=== PATIENT | male | born 1990 | race Caucasian/White ===

== ENCOUNTER 2018-02-24 11:02 | Inpatient (IN) ==
[2018-02-24] MEDS ORDERED: Ibuprofen 600 MG TABLET PO ONE (11:39)
--- NOTE | 2018-02-24 11:49 | Emergency Department Note ---
Disposition Clinical Impression: Acute occlusion of artery of upper extremity Disposition: Admitted As Inpatient Condition: Good Time of Disposition: 16:21 Extremity Problem HPI - General Chief complaint: ED Extremity Problem,Nontraumatic Stated complaint: Right hand pain/feet swelling Time Seen by Provider: 02/24/18 11:21 Source: patient Limitations: no limitations Nursing Notes Reviewed: Yes Vital Signs Reviewed: Yes - History of Present Illness HPI Narrative: 27-year-old male current smoker presents an emergency department with right forearm pain and swelling to bilateral legs. 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 He states he does roughly 500 a day. Over the past week or so he has slowly developed some pain in his right forearm, mostly over the large muscle next to the elbow. On Saturday he was unable do heavy lifting at work due to the pain. He has noticed that his right extremity is slightly colder than the other. He reports some numbness and tingling. Some pain with passive motion. No injury or trauma reported. He is also noticed some swelling to his legs especially since he stands a lot through work. The symptoms are all exacerbated after work. He denies any other symptoms such as fever, recent illness, chest pain or shortness of breath. He has taken ibuprofen with some relief. Pt Subjective Complaint: extremity pain Pain Scale: 8 - Related Data Previous Rx's Medication Instructions Recorded PredniSONE [Deltasone] 20 mg PO DAILY #12 tablet 02/21/18 Tizanidine HCl 4 mg PO TID #15 tablet 02/21/18 Allergies Allergy/AdvReac Type Severity Reaction Status Date / Time No Known Allergies Allergy Verified 02/24/18 16:37 All systems ED: reviewed and negative except as stated. Review of Systems: As Per HPI Past Medical History - Past Medical History Attestation: Yes The following information was validated with the patient. Source: patient Medical history: Reports: non-contributory, other Surgical history: Reports: no surgical history Psychiatric history: Reports: anxiety - Social History Smoking Status: Current every day smoker Smokeless Tobacco Status: No Alcohol use: Reports: none Drug use: Reports: none Physical Exam - General Limitations: no limitations General appearance: alert, in no apparent distress - Chest Chest inspection: Present: normal inspection, symmetric chest wall rise - Respiratory Respiratory exam: Present: normal lung sounds bilaterally. Absent: respiratory distress, wheezes - Cardiovascular Cardiovascular exam: Present: regular rate, normal rhythm, normal heart sounds. Absent: systolic murmur, diastolic murmur - Expanded Cardiovascular Exam Peripheral pulses: 1+: radial (R), 2+: radial (L) - Abdominal Exam Abdominal exam: Present: soft, Non-Tender. Absent: tenderness, distention, guarding, rebound, rigidity - Extremities Exam Extremities exam: Present: other (delayed cap refill in right hand). Absent: pedal edema, calf tenderness - Expanded Upper Extremity Exam Shoulder exam: Present: normal inspection, full ROM Arm exam: Present: normal inspection, full ROM Elbow exam: Present: normal inspection, full ROM Forearm/Wrist exam: Present: full ROM (Limited due to pain), tenderness (To the muscle belly of brachioradialis), other (compartment is soft). Absent: swelling , abrasion, erythema, tenderness over anatomical snuff box Hand exam: Present: normal inspection, full ROM Neuromotor exam: Normal: wrist extension, thumb opposition, thumb IP flexion, thumb adduction, fingers 2-5 abduction Neurosensory exam: Normal: radial nerve, ulnar nerve, median nerve Vascular exam: Normal: capillary refill, radial pulse - Skin Skin exam: Present: warm, dry, intact, normal color. Absent: rash, cyanosis, diaphoresis - Expanded Skin Exam Type of lesion: Absent: rash, abscess Description: Present: purpuric (over the right dorsal hand) Course Course Narrative: Patients develop this pain over the past week or so there is some concern for compartment syndrome. The compartment is tight. He reports tightness with movements. Tenderness is mostly over the muscle belly of the brachioradialis. No tenderness to the epicondyles of the elbow. He has good range of motion but it is limited to some pain on passive motion. Neurovascularly intact. He reports some paresthesias. His capillary refill on the right is slightly delayed. It is slightly cooler to the touch. His lower extremities to not display any significant edema. Does appears slightly swollen but it is nonpitting. Will obtain a urinalysis to evaluate for proteinuria. Will also check a CPK and basic chemistry. - Reevaluation(s) Reevaluation #1: Labs appear okay. Arterial Doppler ultrasound performed with critical results of occlusion to the right antecubital, radial and ulnar artery. Time: 15:13 - Consultations Consultation #1: Consulted orthopedic surgery Dr. Mcmahan who is currently in the OR will have one of his colleagues come to evaluate the patient here in the emergency department at bedside. Discuss the concern of compartment syndrome due to the repetitive movements. Time: 12:24 Consultation #2: Rosina with [facility] is at bedside evaluating the patient. Recommended arterial doppler study and agrees that less suspicious for compartment syndrome but possibility. Await ultrasound doppler before further recommendations. Time: 12:59 Consultation #3: Discuss the findings with vascular surgery Dr. Mcdermott. States this is a very unusual presentation. Requesting stat wrist-brachial index. Agree with heparin drip. Time: 15:21 Additional Consultation(s): Dr. Mcdermott is in the emergency department at bedside evaluating the patient. Will take to the operating room to remove the arterial occlusion. He appears anemic hemoglobin 9. He denies any G.I. bleed symptoms bloody stool, black tarry stool, hemoptysis or hematemesis. His INR is 1.3. Heparin drip has been ordered. Wrist-Brachial Index has been ordered as requested. Vital Signs Temperature 98 F 02/24/18 11:16 Pulse Rate 85 02/24/18 11:16 Respiratory Rate 16 02/24/18 11:16 Blood Pressure 118/60 02/24/18 11:16 O2 Sat by Pulse Oximetry 95 02/24/18 11:16 Temperature 97.7 F 02/24/18 20:10 Pulse Rate 75 02/24/18 20:10 Respiratory Rate 16 02/24/18 20:10 Blood Pressure 127/55 02/24/18 20:10 O2 Sat by Pulse Oximetry 94 02/24/18 20:10 Oxygen Delivery Oxygen Delivery Room Air Extremity Problem, Nontraumati - MDM Narrative Medical decision making narrative: Patient was discussed with my attending physician who agrees with ED management and final disposition. They independently evaluated the patient. Please refer to their attestation to this encounter for additional information. This note was generated by [employer] voice recognition software and as a result grammatical or spelling errors may occur using this program. - Medical Records Medical records reviewed: Yes I reviewed the patient's medical records. - Lab Data Lab results reviewed: Yes I reviewed the patient's lab results. Result diagrams: 02/24/18 20:25 02/24/18 12:11 Lab Results 05/21/18 05/21/18 05/21/18 Range/Units 12:11 12:11 12:11 WBC 13.3 H (4.3-11.1) K/mcL RBC 3.81 L (4.19-5.50) M/mcL Hgb 9.4 L (12.9-16.9) g/dL Hct 30.6 L (37.5-50.1) % MCV 80.3 L (83.0-100.0) fL MCH 24.7 L (28.0-33.3) pg MCHC 30.7 L (31.6-35.5) g/dL RDW 15.4 H (11.5-14.5) % Plt Count 317 (140-400) K/mcL MPV 10.1 (9.4-12.4) fL PT 13.6 H (9.4-12.1) Seconds INR 1.3 APTT 28.4 (26.0-36.0) Seconds Sodium 139 (136-145) mEq/L Potassium 3.6 (3.5-5.1) mEq/L Chloride 107 (98-107) mEq/L Carbon Dioxide 28 (23-29) mEq/L BUN 17 (6-20) mg/dL Creatinine 0.77 (0.70-1.30) mg/dL Est GFR ( Amer) > 60 (> 60) Est GFR (Non-Af Amer) > 60 (> 60) BUN/Creatinine Ratio 22 (6-26) Glucose 123 H (70-105) mg/dL Calculated Osmolality 291 (280-300) Calcium 8.4 L (8.6-10.3) mg/dL Creatine Kinase 162 (30-223) Units/L Urine Color (Yellow) Urine Clarity (Clear) Urine pH (5.0-8.0) pH Units Ur Specific [place] (1.010-1.025) Urine Protein (Neg-Trace) mg/dL Urine Glucose (UA) (Normal) mg/dL Urine Ketones (Negative) mg/dL Urine Blood (Negative) Urine Nitrite (Negative) Urine Bilirubin (Negative) Urine Urobilinogen (Normal) mg/dL Ur Leukocyte Esterase (Negative) Urine Microscopic RBC (0-3) per hpf Urine Microscopic WBC (0-3) per hpf Ur Squamous Epith Cells (None-Few) per lpf Urine Bacteria (None-Few) per hpf Hyaline Casts (None-Few) per lpf Ur Culture Indicated? (NO) 02/24/18 Range/Units 12:54 WBC (4.3-11.1) K/mcL RBC (4.19-5.50) M/mcL Hgb (12.9-16.9) g/dL Hct (37.5-50.1) % MCV (83.0-100.0) fL MCH (28.0-33.3) pg MCHC (31.6-35.5) g/dL RDW (11.5-14.5) % Plt Count (140-400) K/mcL MPV (9.4-12.4) fL PT (9.4-12.1) Seconds INR APTT (26.0-36.0) Seconds Sodium (136-145) mEq/L Potassium (3.5-5.1) mEq/L Chloride (98-107) mEq/L Carbon Dioxide (23-29) mEq/L BUN (6-20) mg/dL Creatinine (0.70-1.30) mg/dL Est GFR ( Amer) (> 60) Est GFR (Non-Af Amer) (> 60) BUN/Creatinine Ratio (6-26) Glucose (70-105) mg/dL Calculated Osmolality (280-300) Calcium (8.6-10.3) mg/dL Creatine Kinase (30-223) Units/L Urine Color Yellow (Yellow) Urine Clarity Clear (Clear) Urine pH 6.0 (5.0-8.0) pH Units Ur Specific [place] 1.018 (1.010-1.025) Urine Protein Trace (Neg-Trace) mg/dL Urine Glucose (UA) Normal (Normal) mg/dL Urine Ketones Negative (Negative) mg/dL Urine Blood Trace H (Negative) Urine Nitrite Negative (Negative) Urine Bilirubin Negative (Negative) Urine Urobilinogen Normal (Normal) mg/dL Ur Leukocyte Esterase Negative (Negative) Urine Microscopic RBC 0-3 (0-3) per hpf Urine Microscopic WBC 3-5 H (0-3) per hpf Ur Squamous Epith Cells Moderate H (None-Few) per lpf Urine Bacteria None Seen (None-Few) per hpf Hyaline Casts None Seen (None-Few) per lpf Ur Culture Indicated? NO (NO) - Radiology Data Radiology results reviewed: Yes I reviewed the patient's radiology results. Forearm X-Ray 02/24/18 11:39 IMPRESSION: No acute osseous abnormality of the right forearm. D/ / Chance Scruggs MD / Chance Scruggs MD Interpreting Provider: Chance Scruggs MD Madi Quiroz Male : 1990 [facility]# [id number] 02/24/18 15:06 - Vascular Preliminary by Saima Jaramillo [facility] Num: [id number] : 1990 Patient Age: 27 Unilateral upper extremity arterial duplex exam completed on right UE. Acute heterogenous plaque resulting in occlusion starting at the antecubital level down to the radial and ulnar arteries on right UE. Initialized on 02/24/18 15:06 - END OF NOTE Attestation Statement - Attestation Attestation: I, Hossein Garces, examined this patient and my medical decision-making was reviewed with the STREET CAR INSPECTOR/PA/Advanced Practice Nurse/Resident Physician. I agree with the documented findings, disposition and treatment plan as described except to the extent set forth below. 27-year-old male presents emergency Department with concerns of right forearm pain. Patient states he has a job which requires repetitive lifting. His pain is a worsening over the past week. On initial evaluation the patient has decreased pulses in the right wrist compared to the left wrist. Cap refill is still within 3 seconds however. Patient has severe tenderness to palpation of the right brachial radialis muscle with spasm evident on exam. The rest of the forearm is soft and nontender. We have concerns about possible compartment syndrome to the dorsal compartment of the arm. We consult the orthopedic physician after the initial evaluation. Orthopedic PA evaluated the patient in the emergency department and recommended arterial and venous Doppler of the forearm. He arterial ultrasound returned as decreased arterial flow in the right upper extremity due to heterogenous plaque in multiple arteries. We started heparin for likely vasculitis. We spoke with Dr. Mcdermott who will take the patient to the operating room for further care and evaluation.
[2018-02-24 12:43] LABS: BUN/Creatinine Ratio 22 (6-26); Blood Urea Nitrogen 17 mg/dL (6-20); Calcium 8.4 mg/dL (8.6-10.3); Carbon Dioxide 28 mEq/L (23-29); Chloride 107 mEq/L (98-107); Creatine Kinase 162 Units/L (30-223); Glucose 123 mg/dL (70-105); Osmolality,Calculated 291 (280-300); Potassium 3.6 mEq/L (3.5-5.1); Sodium 139 mEq/L (136-145); eGFR For African Americans > 60 (> 60); eGFR For Non-African Americans > 60 (> 60)
[2018-02-24 13:12] LABS: Bilirubin,Urine Negative (Negative); Blood,Urine Trace (Negative); Clarity,Urine Clear (Clear); Color,Urine Yellow (Yellow); Glucose,Urine (UA) Normal (Normal); Ketones,Urine Negative (Negative); Leukocyte Esterase,Urine Negative (Negative); Nitrite,Urine Negative (Negative); Protein,Urine Trace mg/dL (Neg-Trace); Specific Gravity,Urine 1.018 (1.010-1.025); Urobilinogen,Urine Normal (Normal)
[2018-02-24 13:15] LABS: Bacteria,Urine None Seen per hpf (None-Few); Hyaline Casts,Urine None Seen per lpf (None-Few); RBC,Urine 0-3 per hpf (0-3); Squamous Epithelial Cell,Urine Moderate per lpf (None-Few)
--- NOTE | 2018-02-24 13:29 | Orthopedic Consult Note ---
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 Quiroz is a 27 year old male presenting to [facility] today for ongoing right hand and forearm pain. He states he went to urgent care approximately 3 days ago and was treated for the same problem however he states they told was tendinitis. 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 He says his pain has been ongoing for the past week with no provoked injury. He states he woke up with the right forearm pain but does not recall any particular injury such as crush or trauma while at work or at home. He denies any history of passing out, binge drinking, or drug use that would incite him laying on the arm for any extended period of time. He does admit to a history of IV drug use however he states that last time he used was 2 years ago. He states he has been clean since then. He does admit to smoking marijuana approximately once monthly. He states he does not believe he is on this within the past one week. He admits to being a daily tobacco smoker. He states that the pain has started out as intermittent however now is constant and progressively worsening. He admits to tingling that has continued to worsen over the past one week. He states this is most intensely been going on for the past approximately 2-3 days. He states his altered sensation he states he still can feel pressure. He also states that approximately 1 week ago when he woke up within the pain that he noticed a "rash" to the dorsal hand. He states that this is not necessarily spread but it is also not resolved. For this pain he states he has been taking ibuprofen 800 mg 3-4 times daily for the past several days. On examination patient is lying in a deep bed comfortably with right hand propped in the air with elbow flexed. When asked to move the elbow he states that it is increasingly painful and he states that he now cannot extend the elbow fully. Skin changes are noted to the dorsal and palmar hand extending down onto the volar wrist. The skin changes are noted to be violaceous, purpuritic, and nonblanching. There is scattered patches of these discolorations approximately the largest 2 cm in diameter with irregular borders. Even with passive range of motion the elbow does not extend past approximately 120 degrees. Flexion is full. Wrist extension is full however wrist flexion and slight significant pain with patient. Tumbler Drier Operator is intact however strength is weakened significantly in the right hand. Finger range of motion appears intact to all digits of the right hand. Capillary refill is noted to be delayed approximately 4 seconds. Radial pulses nearly nonpalpable. Robert's test does not reveal normal flow to the radial artery of the right hand. Patient expresses significant pain and wincing to palpation of the right brachioradialis region. He denies any pain with palpation of the olecranon and surrounding tissues. Assessment: Right forearm pain Vascular compromise of the right upper extremity History of IV drug use Plan: Discussed with resident as well as Rosina Desouza PA-C and Dr. Felton that patient has ongoing pain for the past week there is unexplained at this time. There is definitely concern for compartment syndrome however with the arterial flow disruption concern for clot even arterial is a significant concern. Recommended Doppler of the right upper extremity to evaluate for clot. Did discuss evaluating for compartment syndrome with pressures once clot is ruled out. Dr. Felton recommended MRI if concern for compartment syndrome is ongoing. Thank you for this consultation. If dopplers negative we will continue with evaluation for compartment syndrome to orthopedics. If Doppler is positive with recommend vascular recommendations. Past Med Surg Social Fam HX - Past Medical History Medical history: non-contributory, other Psychiatric history: anxiety - Past Surgical History Surgical History: no surgical history - Social History Smoking Status: Current every day smoker Smokeless Tobacco Status: No Alcohol use: none Drug use: none - Family History Mother Hx Family Endocrine Disorder: Yes Father Hx Family Endocrine Disorder: Yes Medications and Allergies PredniSONE [Deltasone] 20 mg PO DAILY #12 tablet 02/21/18 [Rx] Tizanidine HCl 4 mg PO TID #15 tablet 02/21/18 [Rx] Acetaminophen [Tylenol] 1,000 mg PO Q6HR PRN #90 tablet 02/25/18 [Rx] Aspirin Enteric Coated [Aspirin EC] 325 mg PO DAILY #90 tablet. 02/25/18 [Rx] Ibuprofen [Ibu] 600 mg PO TID PRN #90 tablet 02/25/18 [Rx] 3 Allergy/AdvReac Type Severity Reaction Status Date / Time No Known Allergies Allergy Verified 02/24/18 16:37 All Systems Reviewed: The remainder of the systems were reviewed and are negative Physical Exam - Constitutional Vitals: Temp Pulse Resp BP Pulse Ox 98 F 85 16 118/60 95 02/24/18 11:37 02/24/18 11:37 02/24/18 11:37 02/24/18 11:37 02/24/18 11:37 Results - Labs Result Diagrams: 02/25/18 03:55 02/25/18 03:55 Labs: Abnormal lab results Glucose 123 mg/dL (70-105) H 02/24/18 12:11 Calcium 8.4 mg/dL (8.6-10.3) L 02/24/18 12:11 Urine Blood Trace (Negative) H 02/24/18 12:54 Urine Microscopic WBC 3-5 per hpf (0-3) H 02/24/18 12:54 Ur Squamous Epith Cells Moderate per lpf (None-Few) H 02/24/18 12:54 All other labs normal. Consult Discharge Plan - Plan Instructions: Peripheral Vascular Disorders (DC), Surgical Site Infections (GEN ) Additional Instructions: May remove bandage and shower on 02/26/2018. Wash wound gently and pat to dry. No tub baths or swimming until 03/16/2018. Call Dr. Mdcermott at [phone] with questions or concerns. Referrals: Diana Otero DO [Resident] - 04/11/18 3:30 pm Myrna De Jesus DO [Resident] - 03/06/18 10:00 am (Please show up 30 minutes early to fill out paper work, if you happen to get one in the mail, please fill it out and take with you. Take INS cards, Picture ID, a list of all medication. If you need to cancel please call [phone] 24 hours before your appointment. This office is located across from [facility] next to [facility]) Luisito Mcdermott MD [Partnered Physician] - 03/18/18 4:00 pm NONE,PCP [Primary Care Provider] - Prescriptions: Acetaminophen [Tylenol] 1,000 mg PO Q6HR PRN #90 tablet PRN Reason: POSTOPERATIVE PAIN Aspirin Enteric Coated [Aspirin EC] 325 mg PO DAILY #90 tablet. Ibuprofen [Ibu] 600 mg PO TID PRN #90 tablet PRN Reason: POSTOPERATIVE PAIN
[2018-02-24] MEDS ORDERED: *HR* Heparin 5,000 UNIT/ML VIAL IVP PRN ×4 (15:11→19:56)
[2018-02-24] MEDS ORDERED: *HR* Heparin 5,000 UNIT/ML VIAL IVP ONE (15:11)
[2018-02-24] MEDS ORDERED: Heparin 25,000 UNIT/500 ML D5W 25,000 UNIT/500 ML BAG IVC SCH ×2 (15:15→19:56)
[2018-02-24 15:24] LABS: Hematocrit 30.6 % (37.5-50.1); Hemoglobin 9.4 g/dL (12.9-16.9); Mean Corpuscular HGB Conc 30.7 g/dL (31.6-35.5); Mean Corpuscular Hemoglobin 24.7 pg (28.0-33.3); Mean Corpuscular Volume 80.3 fL (83.0-100.0); Mean Platelet Volume 10.1 fL (9.4-12.4); Platelet Count 317 K/mcL (140-400); Red Blood Count 3.81 M/mcL (4.19-5.50); Red Cell Distribution Width 15.4 % (11.5-14.5)
[2018-02-24 15:29] LABS: INR 1.3; Prothrombin Time 13.6 Seconds (9.4-12.1)
[2018-02-24 15:32] LABS: Activated Partial Thrombo Time 28.4 Seconds (26.0-36.0)
[2018-02-24] MEDS ORDERED: *HR* FentaNYL (PF) 100 MCG/2 ML VIAL IVP ONE (15:36)
--- NOTE | 2018-02-24 16:30 | Anesthesia Evaluation PreOp ---
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) Other Medical History: Denies Any Significant HX Anesthesia History: No Prior Anesthetic Complications, Past Anesthesia (Ankle sx ) Alcohol Use: none Drug use: none Medications and Allergies PredniSONE [Deltasone] 20 mg PO DAILY #12 tablet 02/21/18 [Rx] Tizanidine HCl 4 mg PO TID #15 tablet 02/21/18 [Rx] 3 Allergy/AdvReac Type Severity Reaction Status Date / Time No Known Allergies Allergy Verified 02/24/18 16:37 - Meds/Allergy Pre-op Review Medications Reviewed: Yes Allergies Reviewed: Yes Beta Blockers on Current Med List: No Anesthesia Results - Labs 02/24/18 12:11 02/24/18 12:11 - Imaging EKG: report reviewed (SINUS RHYTHM WITH SINUS ARRHYTHMIA Electronically Signed On 04-18-2017 6:52:44 EDT by Lamont Langford MD) Anesthesia Exam O2 Sat Height 1.83 m Height 1.83 m Weight 73.845 kg Weight 73.845 kg O2 Sat by Pulse Oximetry 95 O2 Sat by Pulse Oximetry 95 Vital Signs Temp Pulse Resp BP Pulse Ox 98 F 85 16 118/60 95 02/24/18 11:16 02/24/18 11:16 02/24/18 11:16 02/24/18 11:16 02/24/18 11:16 Weight: 72" NPO (# of Hours): 162lbs - HEENT Pupil (Motor): Pupils equal, EOMI Mallampati: II Teeth: Normal Oral Opening: Greater than 3 - ELECTRICAL CONTACTS ADJUSTER LOC: Oriented ELECTRICAL CONTACTS ADJUSTER Motor: Normal RUE, Normal LUE, Normal RLE, Normal LLE, Normal Face [employer]LECT[employer]TA[employer] ADJUSTER Sensory: Normal: RUE, LUE, RLE, LLE, Face - Cardiac Rhythm: Regular - Pulmonary Breath Sounds: bilateral Clear Respiratory Effort: Symmetrical Anesthesia Assess/Plan ASA Score: 2, E Modified [place] Scale for Level of Consciousness: Cooperative, oriented, and tranquil Anesthetic Plan: General Monitoring Plan: Standard Monitors Recovery Plan: PACU
[2018-02-24] MEDS ORDERED: Vancomycin 1,000 MG VIAL ONE (16:44)
[2018-02-24] MEDS ORDERED: Heparin 1,000 UNITS/500 mL 1,000 ML ONE (16:44)
[2018-02-24] MEDS ORDERED: *HR* Midazolam HCl 2 MG/2 ML VIAL ONE (16:45)
[2018-02-24] MEDS ORDERED: *HR* FentaNYL (PF) 100 MCG/2 ML VIAL ONE ×2 (16:45→17:50)
[2018-02-24] MEDS ORDERED: *HR* Propofol 200 MG/20 ML VIAL IVP ONE ×2 (16:45→19:06)
[2018-02-24] MEDS ORDERED: Lidocaine -MPF 2% 2 ML VIAL ONE (16:47)
[2018-02-24] MEDS ORDERED: *HR* Succinylcholine 200 MG/10 ML VIAL IVP ONE (16:47)
[2018-02-24] MEDS ORDERED: Ipratropium/Albuterol Neb 3 ML ONE (16:54)
[2018-02-24] MEDS ORDERED: Albuterol 2.5 MG/3 ML NEBULIZER IH ONE (16:55)
--- NOTE | 2018-02-24 16:58 | Vascular/Endovascular H&P ---
Date of Encounter: 02/24/18 Time of Encounter: 16:00 Assessment and Plan (1) Acute occlusion of artery of upper extremity Current Visit: Yes Status: Acute The pathophysiology and natural history of arterial obstruction was discussed the patient COMES are answered. The patient has had an acute right upper extremity occlusion for approximately 7 days. He has absent right radial, ulnar and brachial pulses. He has decreased sensation and decreased motor function of the right upper extremity. Emergent revascularization is recommended. The risks, benefits and alternatives were discussed and all questions were answered. He expressed understanding and wishes to proceed. He was informed that limb loss as possible due to the severity and prolonged duration of his presentation. He stated that he understands this. (2) Tobacco abuse Current Visit: Yes Status: Acute The patient was counseled regarding smoking cessation. History of Present Illness Chief complaint: Right forearm and hand pain HPI: Mr. 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 He does have a lifting. He reports that possibly 7 days ago he developed pain in his right forearm his symptoms have progressed and he came to the emergency room for further evaluation. He now reports decreased strength due to pain as well as some paresthesias. His hand tires easily. He underwent vascular lab studies and an evidence of arterial occlusion of the right upper extremity. He denies any history of previous drug abuse. He denies any recent or remote trauma to the right upper extremity. Vascular surgery was counseled for further evaluation. He denies any chest pain or shortness of breath. Past Med Surg Social Fam HX - Past Medical History Medical history: non-contributory, other Psychiatric history: anxiety - Past Surgical History Surgical History: no surgical history - Social History Smoking Status: Current every day smoker Smokeless Tobacco Status: No Alcohol use: none Drug use: none - Family History Mother Hx Family Endocrine Disorder: Yes Father Hx Family Endocrine Disorder: Yes Medications and Allergies PredniSONE [Deltasone] 20 mg PO DAILY #12 tablet 02/21/18 [Rx] Tizanidine HCl 4 mg PO TID #15 tablet 02/21/18 [Rx] 3 Allergy/AdvReac Type Severity Reaction Status Date / Time No Known Allergies Allergy Verified 02/24/18 16:37 All Systems Review: The remainder of the systems were reviewed and are negative - Constitutional Constitutional: no chills, no fever(s) - Cardiovascular Cardiovascular: no chest pain at rest, no dyspnea at rest Exam General: Present: Conversant HEENT: Present: Trachea midline, Pupils equal Neck: Absent: JVD, Left Carotid bruit, Right Carotid bruit Cardiac: Present: Reg Rate and Rhythm, Normal S1 and S2, No Murmur Lungs: Present: Normal Breath Sounds, No Wheeze, Rales, Rhonchi Neuro: Present: Alert and responsive, No focal deficits noted, Motor nerves grossly intact, Sensory nerves grossly intact Abdomen: Present: Soft, Non-tender. Absent: Masses Vascular: Present: Normal capillary refill (Left upper extremity), Capillary refill delayed (Right upper extremity), Pulse, absent (Right radial and ulnar), Pulse, normal (Left radial and ulnar), Color/Temperature (Right hand cool compared to the left). Absent: Cyanosis, Edema Skin: Present: No rashes noted on visualized skin. Absent: Wound/ulcer(s) Musculoskeletal: Present: No Chest Wall Tenderness Results 02/24/18 12:11 02/24/18 12:11 - Imaging / Other Tests Non Invasive Vascular Testing: report reviewed, image reviewed (Occluded right brachial, radial and ulnar arteries.)
[2018-02-24] MEDS ORDERED: *HR* Heparin 5,000 UNIT/ML VIAL SQ SCH (18:00)
[2018-02-24] MEDS ORDERED: Dexamethasone 4 MG/ML VIAL ONE (18:08)
[2018-02-24] MEDS ORDERED: Ondansetron 4 MG/2 ML VIAL ONE (18:08)
[2018-02-24] MEDS ORDERED: MORPHINE SUL Oral CONC 10 MG/0.5 ML ORAL.SYG SL PRN (18:10)
[2018-02-24] MEDS ORDERED: Ondansetron 4 MG/2 ML VIAL IVP ONE (18:10)
[2018-02-24] MEDS ORDERED: *HR* OxyCODONE Immed Rel 5 MG TABLET PO PRN ×2 (18:10→19:56)
[2018-02-24] MEDS ORDERED: *HR* Heparin 5,000 UNIT/ML VIAL ONE (18:21)
--- NOTE | 2018-02-24 19:29 | Operative Note ---
Date of procedure: 02/24/18 Pre-op diagnosis: Acute right upper extremity ischemia Post-op diagnosis: same Procedure: Right upper extremity thrombectomy with 3-[place] Jered embolus the catheter. Complications: None Anesthesia: GETA Surgeon: Luisito Mcdermott Was there an support assistant present: No Estimated blood loss (cc): 25 Specimen: None Condition: stable Disposition: PACU Procedure in Detail: Indications: The patient is a 27-year-old otherwise healthy male who presents to the emergency room with pain or cc of weakness of the right upper extremity for approximately 7 days duration. The patient reports his symptoms became on acutely and have progressed over the last several days. He denies any recent trauma. He was found have an non-palpable pulse and an occluded brachial radial ulnar artery by duplex. Revascularization was recommended to alleviate his symptoms and reduce his risk of limb loss. Operative procedure: The patient was identified and taken to the operating room. He was prepped and draped in normal sterile fashion after the induction of general endotracheal anesthesia. A transverse incision was made just distal to the antecubital fossa. Through a process of blunt, sharp and electrocautery dissection the proximal distal brachial artery were identified. The vessel was dissected circumferentially and surrounded with vessel loops. It was noted that the pulse was strong and palpable and then abruptly occluded. Dense inflammatory changes were noted to be surrounding the brachial artery. The patient received intravenous heparin. After waiting for the heparin to circulate the vessels were occluded by applying tension to the vessel loops. A transverse arteriotomy was made to the brachial artery. Well organized thrombus was encountered. A Jered catheter was advanced proximally and the balloon was inflated. The balloon was withdrawn and significant thrombus was retrieved. Strong pulsatile flow was noted from the brachial artery. Heparinized saline was infused into the lumen. The brachial artery was then reoccluded. The Jered catheter was passed distally into the radial and ulnar arteries. Multiple passes were required. Significant thrombus was removed on multiple passes. After 2 negative passes retrograde arterial blood was noted. The lumen was flushed. The arteriotomy was reapproximated with a running 6-0 Prolene. Flow was then restored. Polyphasic signals were noted at the radial artery at this point. The wound was irrigated with antibiotic containing saline. Meticulous hemostasis was obtained throughout the wound with electrocautery. The wound was reapproximated with layers of 3-0 Vicryl suture. The skin was reapproximated with 3-0 Monocryl. Sterile was applied. At this point a strong palpable pulse was noted at the radial artery. A polyphasic signals noted at the palmar arch. The patient was admitted and taken to recovery room in stable condition.
[2018-02-24] MEDS ORDERED: Acetaminophen 325 MG TABLET PO PRN (19:56)
[2018-02-24] MEDS ORDERED: Naloxone 0.4 MG/ML INJ IVP PRN (19:56)
[2018-02-24] MEDS: *HR* HYDROcodone/Acet 5/325 mg TABLET PO PRN (20:18)
[2018-02-24] MEDS: tiZANidine 4 MG TABLET PO SCH (20:18)
[2018-02-24] MEDS: Aspirin Enteric Coated 325 MG Tablet PO SCH (20:18)
[2018-02-24 20:57] LABS: Hematocrit 28.1 % (37.5-50.1); Hemoglobin 9.1 g/dL (12.9-16.9); Mean Corpuscular HGB Conc 32.4 g/dL (31.6-35.5); Mean Corpuscular Hemoglobin 25.7 pg (28.0-33.3); Mean Corpuscular Volume 79.4 fL (83.0-100.0); Mean Platelet Volume 9.7 fL (9.4-12.4); Platelet Count 266 K/mcL (140-400); Red Blood Count 3.54 M/mcL (4.19-5.50); Red Cell Distribution Width 15.1 % (11.5-14.5)
[2018-02-24 21:01] LABS: INR 1.3; Prothrombin Time 14.4 Seconds (9.4-12.1)
[2018-02-24] MEDS ORDERED: Ketorolac 30 MG/ML VIAL IM ONE ×2 (21:55→22:15)
[2018-02-25 04:07] LABS: Basophils % 0.1 %; Eosinophils % 0.1 %; Hematocrit 29.3 % (37.5-50.1); Hemoglobin 9.6 g/dL (12.9-16.9); Immature Granulocytes % 1.1 % (0-4); Lymphocytes # 1.2 K/mcL (0.6-4.6); Lymphocytes % 7.7 %; Mean Corpuscular HGB Conc 32.8 g/dL (31.6-35.5); Mean Corpuscular Hemoglobin 25.8 pg (28.0-33.3); Mean Corpuscular Volume 78.8 fL (83.0-100.0); Mean Platelet Volume 9.8 fL (9.4-12.4); Monocytes # 0.8 K/mcL (0.0-1.3); Monocytes % 5.3 %; Neutrophils # 13.6 K/mcL (1.6-8.9); Nucleated Red Blood Cells 0.1 /100 WBC (0); Platelet Count 282 K/mcL (140-400); Red Blood Count 3.72 M/mcL (4.19-5.50); Red Cell Distribution Width 15.2 % (11.5-14.5); Segmented Neutrophils % 85.7 %
[2018-02-25 04:27] LABS: BUN/Creatinine Ratio 25 (6-26); Blood Urea Nitrogen 17 mg/dL (6-20); Calcium 8.2 mg/dL (8.6-10.3); Carbon Dioxide 23 mEq/L (23-29); Chloride 105 mEq/L (98-107); Glucose 177 mg/dL (70-105); Osmolality,Calculated 284 (280-300); Potassium 4.5 mEq/L (3.5-5.1); Sodium 134 mEq/L (136-145); eGFR For African Americans > 60 (> 60); eGFR For Non-African Americans > 60 (> 60)
[2018-02-25] MEDS ORDERED: Ketorolac 15 MG/ML VIAL IVP SCH (06:00)
[2018-02-25 06:59] VITALS: BP 123/54
[2018-02-25] MEDS: tiZANidine 4 MG TABLET PO SCH (07:49)
[2018-02-25] MEDS: Aspirin Enteric Coated 325 MG Tablet PO SCH (07:49)
[2018-02-25] MEDS: *HR* HYDROcodone/Acet 5/325 mg TABLET PO PRN (07:51)
[2018-02-25] MEDS ORDERED: predniSONE 20 MG TABLET PO SCH (09:00)
--- NOTE | 2018-02-25 09:47 | Discharge Summary ---
Orders not resulted at time of discharge: Pending orders 02/24/18 19:01 Surgical Pathology [PTH] Routine 02/25/18 11:00 PTT [Activated Partial Thrombo Time] [COAG] Timed Date of Encounter: 02/25/18 Time of Encounter: 09:15 - Discharge Diagnosis (1) Acute occlusion of artery of upper extremity Priority: Primary Status: Acute Comments: Patient is postoperative day #1 after right upper extremity thrombectomy. He has a palpable pulse. His symptoms have resolved. His motor and sensory are grossly intact. He will be discharged today. (2) Tobacco abuse Priority: Secondary Status: Chronic - Hospital Course Hospital course: Mr. Quiroz is a 27 year old male admitted on 02/24/2018 with acute right upper extremity ischemia. He is taken operating room where he underwent a right upper extremity thrombectomy. He tolerated the procedure well. He was discharged home in stable condition on postoperative day #1 without complications. He is advised to take aspirin daily. Time spent discussing smoking cessation with patient: 3 to 10 minutes - Time Spent with Patient Total time spent providing and/or coordinating discharge services: - Discharge Medications Prescriptions: Acetaminophen [Tylenol] 1,000 mg PO Q6HR PRN #90 tablet PRN Reason: POSTOPERATIVE PAIN Ibuprofen [Ibu] 600 mg PO TID PRN #90 tablet PRN Reason: POSTOPERATIVE PAIN Home Medications: PredniSONE [Deltasone] 20 mg PO DAILY #12 tablet 02/21/18 [Rx] Tizanidine HCl 4 mg PO TID #15 tablet 02/21/18 [Rx] Acetaminophen [Tylenol] 1,000 mg PO Q6HR PRN #90 tablet 02/25/18 [Rx] Ibuprofen [Ibu] 600 mg PO TID PRN #90 tablet 02/25/18 [Rx] Allergies/Adverse Reactions: 3 Allergy/AdvReac Type Severity Reaction Status Date / Time No Known Allergies Allergy Verified 02/24/18 16:37 Date of admission: 02/24/18 16:33 Primary care physician: PCP NONE Procedure(s) Performed: Right upper extremity thrombectomy. Discharging clinician: Luisito Mcdermott Anticipated date of discharge: 02/25/18 Exam Vital Signs, Last 4 Hours Temp Pulse Resp BP Pulse Ox 02/25/18 07:53 76 02/25/18 06:55 98.1 F 66 16 123/54 98 - Patient Status Disposition: Home, Self-Care Condition: Good Functional capacity at discharge: independent ambulation Overall status at discharge: patient is back to baseline - Discharge Instructions Follow Up With: Bennett Amato MD [Partnered Physician] - Luisito Mcdermott MD [Partnered Physician] - 03/18/18 4:00 pm NONE,PCP [Primary Care Provider] - Additional Instructions: May remove bandage and shower on 02/26/2018. Wash wound gently and pat to dry. No tub baths or swimming until 03/16/2018. Call Dr. Mcdermott at [phone] with questions or concerns. - Diet and Activity Activity: increase activity as tolerated Diet: advance to your usual diet
== END 2018-02-25 10:40 | disposition home or self-care (01) | DRG 254 ==
LOC: EMEROO 11:02 → 2NNU 16:33
PROVIDERS: ADMIT Surgery; ATTEND Surgery